=== PATIENT | male | born 1960 | race African-American/Black ===

== ENCOUNTER 2018-08-20 13:44 | Inpatient (IN) | payer OTHER ==
[~2018-08-20] VITALS: Ht 175.3 cm; Wt 101.6 kg
[2018-08-20 14:44] LABS: BASOPHILS % 1.1 % (0.0-2.0); EOSINOPHILS % 2.6 % (0.0-5.0); HEMATOCRIT. 37.5 % (42.0-52.0); HEMOGLOBIN. 12.7 g/dL (14.0-18.0); MEAN CORPUSCULAR HEMOGLOBIN 32.7 pg (28.0-32.0); MEAN CORPUSCULAR VOLUME 96.8 fL (80.0-94.0); MONOCYTES % 12.8 % (2.0-8.0); NEUTROPHILS % 45.5 % (40.0-76.0); PLATELET 179 x1000/uL (130-400); RED BLOOD CELL COUNT 3.88 mill/uL (4.7-6.1); RED CELL DISTRIBUTION WIDTH 15.5 % (11.6-14.6)
[2018-08-20 14:46] LABS: CLARITY URINE CLEAR (CLEAR); COLOR URINE YELLOW (YELLOW); KETONES URINE NEGATIVE (NEGATIVE); LEUKOCYTE ESTERASE URINE NEGATIVE (NEGATIVE); NITRITE URINE NEGATIVE (NEGATIVE); OCCULT BLOOD URINE NEGATIVE (NEGATIVE); PROTEIN URINE NEGATIVE (NEGATIVE); SPECIFIC GRAVITY URINE 1.005 (1.005-1.030); UROBILINOGEN URINE 0.2 E.U./dL (0.2-1.0)
[2018-08-20 14:50] LABS: CHLORIDE 106 mEq/L (98-107)
[2018-08-20 15:07] LABS: PROTHROMBIN TIME 10.3 sec (9.6-11.0)
[2018-08-20] MEDS ORDERED: SODIUM CHLORIDE 0.9% 1,000 ML IV ONE (15:26)
[2018-08-20] MEDS ORDERED: ONDANSETRON HCL 4MG/2ML INJ IV STA (15:26)
[2018-08-20] MEDS ORDERED: FAMOTIDINE 20MG/2ML VIAL IV ONE (15:30)
[2018-08-20] MEDS ORDERED: PANTOPRAZOLE 40MG DR TABLET PO ONE (15:30)
[2018-08-20 17:08] LABS: CHLORIDE 108 mEq/L (98-107)
[2018-08-21] MEDS ORDERED: KDUR10 PO (05:35)
[2018-08-21] MEDS ORDERED: FERR-71 PO (05:35)
[2018-08-21] MEDS ORDERED: FLUT1DIS3 IH (05:35)
[2018-08-21] MEDS ORDERED: CHOL100044 PO (05:35)
[2018-08-21] MEDS ORDERED: PANT40TA4 PO (05:35)
[2018-08-21] MEDS ORDERED: FURO-151 PO (05:35)
[2018-08-21 05:37] VITALS: BP 147/99
[2018-08-21 05:40] VITALS: BP 147/99
[2018-08-21] MEDS ORDERED: ONDANSETRON HCL 4MG/2ML INJ IV PRN (06:15)
[2018-08-21] MEDS ORDERED: IPRATROPIUM/ALBUTEROL 0.5-3(2.5)MG/3ML NEB HHN PRN (06:45)
[2018-08-21 07:47] LABS: EOSINOPHILS % 1.1 % (0.0-5.0); HEMATOCRIT. 36.7 % (42.0-52.0); HEMOGLOBIN. 12.2 g/dL (14.0-18.0); LYMPHOCYTES % 22.4 % (20.0-50.0); MEAN CORPUSCULAR HEMOGLOBIN 32.3 pg (28.0-32.0); MEAN CORPUSCULAR VOLUME 96.8 fL (80.0-94.0); MEAN PLATELET VOLUME 8.3 fl (7.4-10.4); MONOCYTES % 10.3 % (2.0-8.0); NEUTROPHILS % 65.2 % (40.0-76.0); PLATELET 168 x1000/uL (130-400); RED BLOOD CELL COUNT 3.79 mill/uL (4.7-6.1); RED CELL DISTRIBUTION WIDTH 15.4 % (11.6-14.6)
[2018-08-21 07:51] LABS: CHLORIDE 108 mEq/L (98-107)
[2018-08-21 08:00] VITALS: BP 153/105
[2018-08-21] MEDS ORDERED: AMLODIPINE 10MG TABLET PO SCH (09:15)
[2018-08-21] MEDS ORDERED: CLONIDINE 0.1MG TABLET PO PRN (09:15)
[2018-08-21] MEDS: PANTOPRAZOLE 40MG DR TABLET PO SCH ×2 (10:00→21:25)
[2018-08-21] MEDS: FLUTICASONE PROPIONATE 50MCG/SPRAY BOTTLE BOTHNSTRLS SCH (10:01)
[2018-08-21 12:00] VITALS: BP 149/95
[2018-08-21 12:10] LABS: HEMATOCRIT 36.3 % (42.0-52.0); HEMOGLOBIN 12.2 g/dL (14.0-18.0)
[2018-08-21] MEDS ORDERED: LOSARTAN POTASSIUM 25 MG TABLET PO SCH (12:45)
[2018-08-21 13:35] LABS: LDL CHOLESTEROL 87 mg/dL (5-100)
[2018-08-21 15:10] LABS: HDL CHOLESTEROL 142 mg/dL (40-59)
[2018-08-21 15:47] VITALS: BP 155/98
[2018-08-21] MEDS ORDERED: MORPHINE SULFATE 2 MG/ML CPJ (NOT FOR IM USE) IV PRN (16:45)
[2018-08-21] MEDS ORDERED: BISACODYL 5MG TABLET PO PRN (17:30)
[2018-08-21] MEDS: DOCUSATE SODIUM 250MG CAPSULE PO SCH (18:47)
[2018-08-21 19:11] LABS: HEMATOCRIT 36.2 % (42.0-52.0)
[2018-08-21 20:00] VITALS: BP 147/93
[2018-08-21] MEDS: HYDROCORTISONE ACETATE 25MG SUPP PR SCH (21:25)
[2018-08-22] VITALS: BP 138/85
[2018-08-22 04:09] VITALS: BP 145/88
[2018-08-22] MEDS: PANTOPRAZOLE 40MG DR TABLET PO SCH (06:20)
[2018-08-22 06:38] LABS: HEMATOCRIT. 36.3 % (42.0-52.0); HEMOGLOBIN. 12.3 g/dL (14.0-18.0); MEAN CORPUSCULAR HEMOGLOBIN 32.5 pg (28.0-32.0); MEAN CORPUSCULAR VOLUME 96.4 fL (80.0-94.0); MEAN PLATELET VOLUME 8.9 fl (7.4-10.4); PLATELET 166 x1000/uL (130-400); RED BLOOD CELL COUNT 3.77 mill/uL (4.7-6.1); RED CELL DISTRIBUTION WIDTH 15.5 % (11.6-14.6)
[2018-08-22 06:55] LABS: CHLORIDE 105 mEq/L (98-107)
[2018-08-22 08:00] VITALS: BP 153/97
[2018-08-22 08:29] LABS: PLATELET ESTIMATE NORMAL
[2018-08-22] MEDS ORDERED: LOSARTAN POTASSIUM 100 MG TABLET PO SCH (09:00)
[2018-08-22] MEDS: DOCUSATE SODIUM 250MG CAPSULE PO SCH (10:16)
[2018-08-22] MEDS: HYDROCORTISONE ACETATE 25MG SUPP PR SCH (10:16)
[2018-08-22] MEDS: FLUTICASONE PROPIONATE 50MCG/SPRAY BOTTLE BOTHNSTRLS SCH (10:17)
[2018-08-22 12:00] VITALS: BP 149/115
[2018-08-22] MEDS ORDERED: DILTIAZEM HCL 60MG TABLET PO SCH (12:00)
[2018-08-22 14:13] VITALS: BP 149/115
[2018-08-22] MEDS ORDERED: FAMOTIDINE 20MG TABLET PO SCH (21:00)
== END 2018-08-22 14:30 | disposition home or self-care (01) | DRG 253 ==
LOC: ER 13:44 → 6WST 17:18 → EDBEDREQ 17:20 → ENRESERV 08-21 03:49
PROVIDERS: ADMIT Internal Medicine; ATTEND Internal Medicine
DX: K92.2 Gastrointestinal hemorrhage, unspecified (principal); E87.8 Other disorders of electrolyte and fluid balance, not elsewhere classified; D53.9 Nutritional anemia, unspecified; E11.9 Type 2 diabetes mellitus without complications; D50.9 Iron deficiency anemia, unspecified; E66.9 Obesity, unspecified; E78.5 Hyperlipidemia, unspecified; I10 Essential (primary) hypertension; J44.9 Chronic obstructive pulmonary disease, unspecified; K64.9 Unspecified hemorrhoids; M10.9 Gout, unspecified; J98.11 Atelectasis; K59.00 Constipation, unspecified; F17.210 Nicotine dependence, cigarettes, uncomplicated; Z60.2 Problems related to living alone; J45.909 Unspecified asthma, uncomplicated; Z79.899 Other long term (current) drug therapy
CPT/HCPCS: 36415; 71045; 78278; 80048; 80061; 82270; 82962; 84443; 84484; 85014; 85018; 86850; 86900; 93005; 93970; 96361; 96374; 96375; 99285; A9560; J2270; J2405; J3490; J7030

== ENCOUNTER 2020-03-11 15:23 | Emergency (ER) | payer MEDICAID ==
[~2020-03-11] VITALS: Ht 175.3 cm; Wt 91.0 kg
[~2020-03-11 15:23] MED LIST: ALBU18HF2 IH; AMLO5TAB88 PO; ATOR20TA PO; CHOL100044 PO; FERR325T6 PO; FLUT1DIS3 IH; FLUT1DIS3 INH; FURO-151 PO; KDUR10 PO; PANT40TA4 PO
[2020-03-11 15:29] VITALS: BP 157/100
[2020-03-11] MEDS ORDERED: OXYC-662 GT (15:33)
[2020-03-11 18:01] LABS: CHLORIDE 100 mEq/L (98-107)
[2020-03-11 18:16] LABS: EOSINOPHILS % 2.8 % (0.0-5.0); HEMATOCRIT. 38.9 % (42.0-52.0); HEMOGLOBIN. 12.6 g/dL (14.0-18.0); LYMPHOCYTES % 51.2 % (20.0-50.0); MEAN CORPUSCULAR HEMOGLOBIN 26.8 pg (28.0-32.0); MEAN CORPUSCULAR VOLUME 82.8 fL (80.0-94.0); MEAN PLATELET VOLUME 8.2 fl (7.4-10.4); MONOCYTES % 9.3 % (2.0-8.0); NEUTROPHILS % 35.7 % (40.0-76.0); PLATELET 269 x1000/uL (130-400); RED CELL DISTRIBUTION WIDTH 21.2 % (11.6-14.6)
[2020-03-11 18:27] LABS: PROTHROMBIN TIME 10.3 sec (9.6-11.0)
== END 2020-03-11 21:01 | disposition home or self-care (01) ==
LOC: ER 15:23
DX: N17.9 Acute kidney failure, unspecified (principal); D64.9 Anemia, unspecified; I10 Essential (primary) hypertension; J45.909 Unspecified asthma, uncomplicated; F12.10 Cannabis abuse, uncomplicated; Z88.0 Allergy status to penicillin
CPT/HCPCS: 36415; 71045; 80053; 84484; 85025; 86850; 86900; 93005; 99285

== ENCOUNTER 2020-04-28 21:52 | Emergency (ER) | payer MEDICAID ==
[~2020-04-28] VITALS: Ht 182.9 cm; Wt 103.0 kg
[~2020-04-28 21:52] MED LIST changes: +OXYC-662 GT; -PANT40TA4 PO; +PANT40TA51 PO
[2020-04-28] MEDS ORDERED: ACETAMINOPHEN 325MG TABLET PO ONE (23:15)
[2020-04-28] MEDS ORDERED: IBUPROFEN 400MG TABLET PO ONE (23:15)
[2020-04-29 04:59] VITALS: BP 140/96
== END 2020-04-29 05:25 | disposition home or self-care (01) ==
LOC: ER 21:52
DX: F10.229 Alcohol dependence with intoxication, unspecified (principal); M25.561 Pain in right knee; I12.9 Hypertensive chronic kidney disease with stage 1 through stage 4 chronic kidney disease, or unspecified chronic kidney disease; N18.9 Chronic kidney disease, unspecified; E78.00 Pure hypercholesterolemia, unspecified; J45.909 Unspecified asthma, uncomplicated; M10.9 Gout, unspecified; F12.10 Cannabis abuse, uncomplicated; Y90.9 Presence of alcohol in blood, level not specified; Z88.0 Allergy status to penicillin
CPT/HCPCS: 93005; 99283

== ENCOUNTER 2020-04-29 10:22 | Emergency (ER) | payer MEDICAID ==
[~2020-04-29] VITALS: Ht 182.9 cm; Wt 99.0 kg
[2020-04-29] MEDS ORDERED: DEXAMETHASONE 10 MG/ML VIAL IM ONE (11:15)
[2020-04-29] MEDS ORDERED: KETOROLAC 60MG/2ML VIAL IM ONE (11:15)
[2020-04-29 14:07] VITALS: BP 121/73
== END 2020-04-29 14:11 | disposition home or self-care (01) ==
LOC: ER 10:22
DX: M25.561 Pain in right knee (principal); M10.9 Gout, unspecified; M19.90 Unspecified osteoarthritis, unspecified site; J45.909 Unspecified asthma, uncomplicated; F12.10 Cannabis abuse, uncomplicated; I11.9 Hypertensive heart disease without heart failure; E11.9 Type 2 diabetes mellitus without complications; Z98.890 Other specified postprocedural states; Z88.0 Allergy status to penicillin
CPT/HCPCS: 93005; 96372; 99284; J1100; J1885

== ENCOUNTER 2020-06-28 13:49 | Emergency (ER) | payer MEDICAID ==
[~2020-06-28] VITALS: Ht 177.8 cm; Wt 100.0 kg
[2020-06-28 16:01] LABS: EOSINOPHILS % 1.8 % (0.0-5.0); HEMATOCRIT. 39.9 % (42.0-52.0); MEAN CORPUSCULAR HEMOGLOBIN 28.9 pg (28.0-32.0); MEAN CORPUSCULAR VOLUME 88.8 fL (80.0-94.0); MEAN PLATELET VOLUME 8.6 fl (7.4-10.4); MONOCYTES % 7.8 % (2.0-8.0); NEUTROPHILS % 48.4 % (40.0-76.0); PLATELET 426 x1000/uL (130-400); RED CELL DISTRIBUTION WIDTH 19.7 % (11.6-14.6)
[2020-06-28 16:07] LABS: CHLORIDE 102 mEq/L (98-107)
[2020-06-28 16:11] LABS: PROTHROMBIN TIME 10.7 sec (9.6-11.0)
[2020-06-28 16:24] LABS: ETHANOL BLOOD 415 mg/dL
[2020-06-29 00:38] VITALS: BP 138/68
== END 2020-06-29 00:38 | disposition home or self-care (01) ==
LOC: ER 13:49
DX: F10.129 Alcohol abuse with intoxication, unspecified (principal); R10.9 Unspecified abdominal pain; F12.10 Cannabis abuse, uncomplicated; E78.00 Pure hypercholesterolemia, unspecified; I10 Essential (primary) hypertension; Z88.0 Allergy status to penicillin; Z79.899 Other long term (current) drug therapy; Z90.49 Acquired absence of other specified parts of digestive tract; Y90.8 Blood alcohol level of 240 mg/100 ml or more
CPT/HCPCS: 36415; 80053; 80320; 84484; 85025; 93005; 99285; G0480

== ENCOUNTER 2020-09-01 13:55 | Emergency (ER) | payer MEDICAID, OTHER ==
[~2020-09-01] VITALS: Ht 185.4 cm; Wt 99.0 kg
[2020-09-01] MEDS ORDERED: FOLIC ACID 1 MG, THIAMINE HCL 100 MG, MVI, ADULT NO.1 10 ML in DEXTROSE 5% WATER 1,000 ML IV ONE (14:15)
[2020-09-01 14:49] LABS: BASOPHILS % 1.5 % (0.0-2.0); EOSINOPHILS % 5.4 % (0.0-5.0); HEMATOCRIT. 35.6 % (42.0-52.0); HEMOGLOBIN. 11.8 g/dL (14.0-18.0); LYMPHOCYTES % 34.8 % (20.0-50.0); MEAN CORPUSCULAR HEMOGLOBIN 31.8 pg (28.0-32.0); MEAN CORPUSCULAR VOLUME 95.7 fL (80.0-94.0); MEAN PLATELET VOLUME 8.1 fl (7.4-10.4); MONOCYTES % 11.1 % (2.0-8.0); NEUTROPHILS % 47.2 % (40.0-76.0); PLATELET 214 x1000/uL (130-400); RED BLOOD CELL COUNT 3.72 mill/uL (4.7-6.1); RED CELL DISTRIBUTION WIDTH 18.6 % (11.6-14.6)
[2020-09-01 14:54] LABS: CHLORIDE 106 mEq/L (98-107)
[2020-09-01 15:08] LABS: ETHANOL BLOOD 429 mg/dL
[2020-09-01 15:50] LABS: *AMPHETAMINES SCREEN URINE NEGATIVE (NEGATIVE); *BARBITURATES SCREEN URINE NEGATIVE (NEGATIVE); *BENZODIAZEPINES SCREEN URINE NEGATIVE (NEGATIVE); *COCAINE SCREEN URINE NEGATIVE (NEGATIVE)
[2020-09-01 15:51] LABS: CANNABINOID URINE SCREEN NEGATIVE (NEGATIVE); METHADONE URINE SCREEN NEGATIVE (NEGATIVE); OPIATES URINE SCREEN NEGATIVE (NEGATIVE); PHENCYCLIDINE URINE SCREEN NEGATIVE (NEGATIVE)
[2020-09-01 19:30] VITALS: BP 127/63
== END 2020-09-01 19:53 | disposition left against medical advice (07) ==
LOC: ER 14:49
DX: R07.89 Other chest pain (principal); F10.229 Alcohol dependence with intoxication, unspecified; Y90.8 Blood alcohol level of 240 mg/100 ml or more; E78.00 Pure hypercholesterolemia, unspecified; I10 Essential (primary) hypertension; Z90.49 Acquired absence of other specified parts of digestive tract; F17.290 Nicotine dependence, other tobacco product, uncomplicated; Z79.899 Other long term (current) drug therapy; Z88.0 Allergy status to penicillin
CPT/HCPCS: 36415; 71045; 80053; 80305; 80320; 83605; 83690; 83880; 84484; 85025; 93005; 96365; 99285; J3411; J3490; J7070; G0480

== ENCOUNTER 2020-09-30 11:52 | Inpatient (IN) | payer MEDICAID, OTHER ==
[~2020-09-30] VITALS: Ht 185.4 cm; Wt 112.9 kg
[2020-09-30] MEDS ORDERED: ACETAMINOPHEN 325MG TABLET PO STA (12:10)
[2020-09-30 12:32] LABS: BASOPHILS % 1.4 % (0.0-2.0); EOSINOPHILS % 1.7 % (0.0-5.0); HEMOGLOBIN. 10.2 g/dL (14.0-18.0); LYMPHOCYTES % 33.7 % (20.0-50.0); MEAN CORPUSCULAR HEMOGLOBIN 32.4 pg (28.0-32.0); MEAN CORPUSCULAR VOLUME 95.3 fL (80.0-94.0); MEAN PLATELET VOLUME 8.2 fl (7.4-10.4); MONOCYTES % 12.1 % (2.0-8.0); NEUTROPHILS % 51.1 % (40.0-76.0); PLATELET 204 x1000/uL (130-400); RED BLOOD CELL COUNT 3.14 mill/uL (4.7-6.1); RED CELL DISTRIBUTION WIDTH 16.8 % (11.6-14.6)
[2020-09-30 12:38] LABS: CHLORIDE 104 mEq/L (98-107)
[2020-09-30 12:52] LABS: ETHANOL BLOOD 390 mg/dL
[2020-09-30] MEDS ORDERED: IOHEXOL-300 100 ML BOTTLE ONE (14:03)
[2020-09-30 21:55] VITALS: BP 127/63
[2020-09-30] MEDS ORDERED: LORAZEPAM 2MG/ML CPJ IV PRN (22:45)
[2020-09-30] MEDS: HYDROCODONE/ACETAMINOPHEN 5/325MG TABLET PO PRN (23:10)
[2020-09-30] MEDS: ONDANSETRON HCL 4MG/2ML INJ IV PRN (23:11)
[2020-10-01] VITALS: BP 127/63
[2020-10-01 04:00] VITALS: BP 153/103
[2020-10-01] MEDS ORDERED: *PATIENT'S OWN MEDICATION STORAGE XX SCH (04:30)
[2020-10-01] MEDS: HYDROCODONE/ACETAMINOPHEN 5/325MG TABLET PO PRN (05:25)
[2020-10-01] MEDS: ONDANSETRON HCL 4MG/2ML INJ IV PRN ×2 (05:25→11:45)
[2020-10-01] MEDS ORDERED: CLONIDINE 0.1MG TABLET PO PRN (06:45)
[2020-10-01 08:00] VITALS: BP 131/92
[2020-10-01] MEDS: THIAMINE HCL 100MG TABLET PO SCH (09:05)
[2020-10-01] MEDS: FAMOTIDINE 20MG TABLET PO SCH ×2 (09:05→21:07)
[2020-10-01] MEDS: AMLODIPINE 10MG TABLET PO SCH (09:05)
[2020-10-01] MEDS: FOLIC ACID 1MG TABLET PO SCH (09:05)
[2020-10-01] MEDS: CHLORDIAZEPOXIDE 25MG CAPSULE PO SCH ×2 (09:05→16:40)
[2020-10-01] MEDS: METOPROLOL TARTRATE 25MG TABLET PO SCH ×2 (09:06→21:00)
[2020-10-01] MEDS: MULTIVITAMINS,THER W-MINERALS TABLET PO SCH (09:07)
[2020-10-01 12:00] VITALS: BP 113/76
[2020-10-01 16:00] VITALS: BP 119/74
[2020-10-01 20:00] VITALS: BP 98/68
[2020-10-02] VITALS: BP 119/71
[2020-10-02 04:00] VITALS: BP 121/80
[2020-10-02 08:00] VITALS: BP 129/84
[2020-10-02] MEDS: MULTIVITAMINS,THER W-MINERALS TABLET PO SCH (08:57)
[2020-10-02] MEDS: FOLIC ACID 1MG TABLET PO SCH (08:57)
[2020-10-02] MEDS: FAMOTIDINE 20MG TABLET PO SCH (08:57)
[2020-10-02] MEDS: METOPROLOL TARTRATE 25MG TABLET PO SCH (08:57)
[2020-10-02] MEDS: THIAMINE HCL 100MG TABLET PO SCH (08:57)
[2020-10-02] MEDS: CHLORDIAZEPOXIDE 25MG CAPSULE PO SCH (08:57)
[2020-10-02] MEDS: AMLODIPINE 10MG TABLET PO SCH (08:58)
[2020-10-02] MEDS ORDERED: THIA100T88 MT (11:54)
[2020-10-02 12:00] VITALS: BP 125/85
== END 2020-10-02 16:23 | disposition left against medical advice (07) | DRG 770 ==
LOC: ER 11:52 → 6EST 18:14 → ENRESERV 21:12
PROVIDERS: ADMIT Internal Medicine; ATTEND Internal Medicine
DX: F10.129 Alcohol abuse with intoxication, unspecified (principal); M48.02 Spinal stenosis, cervical region; R62.7 Adult failure to thrive; D64.9 Anemia, unspecified; E66.9 Obesity, unspecified; D72.819 Decreased white blood cell count, unspecified; E78.00 Pure hypercholesterolemia, unspecified; E78.5 Hyperlipidemia, unspecified; I10 Essential (primary) hypertension; R74.01 Elevation of levels of liver transaminase levels; Z60.2 Problems related to living alone; W10.8XXA Fall (on) (from) other stairs and steps, initial encounter; Z82.49 Family history of ischemic heart disease and other diseases of the circulatory system; Z68.32 Body mass index [BMI] 32.0-32.9, adult; Z88.0 Allergy status to penicillin; Z79.899 Other long term (current) drug therapy; Z71.3 Dietary counseling and surveillance; Z90.49 Acquired absence of other specified parts of digestive tract; Y93.89 Activity, other specified; Y92.89 Other specified places as the place of occurrence of the external cause; Y99.8 Other external cause status
CPT/HCPCS: 36415; 71045; 74177; 80053; 80320; 85025; 97116; 97162; 99285; J2405; Q9967; G0480

== ENCOUNTER 2022-05-17 10:04 | Emergency (ER) | payer OTHER ==
[~2022-05-17] VITALS: Ht 182.9 cm; Wt 95.0 kg
[~2022-05-17 10:04] MED LIST changes: -KDUR10 PO; +POTA-189 PO; +THIA100T88 MT
[2022-05-17] MEDS ORDERED: SODIUM CHLORIDE 0.9% 1,000 ML IV ONE (10:30)
[2022-05-17 11:14] LABS: HEMATOCRIT. 33.7 % (42.0-52.0); HEMOGLOBIN. 10.7 g/dL (14.0-18.0); MEAN CORPUSCULAR HEMOGLOBIN 26.8 pg (28.0-32.0); MEAN CORPUSCULAR VOLUME 84.5 fL (80.0-94.0); MEAN PLATELET VOLUME 8.6 fl (7.4-10.4); PLATELET 288 x1000/uL (130-400); RED BLOOD CELL COUNT 3.99 mill/uL (4.7-6.1); RED CELL DISTRIBUTION WIDTH 20.2 % (11.6-14.6)
[2022-05-17 11:32] LABS: CHLORIDE 109 mEq/L (98-107)
[2022-05-17 11:54] LABS: ETHANOL BLOOD 422 mg/dL
[2022-05-17 11:58] LABS: CLARITY URINE CLEAR (CLEAR); COLOR URINE YELLOW (YELLOW); KETONES URINE TRACE (NEGATIVE); LEUKOCYTE ESTERASE URINE NEGATIVE (NEGATIVE); NITRITE URINE NEGATIVE (NEGATIVE); OCCULT BLOOD URINE NEGATIVE (NEGATIVE); PROTEIN URINE TRACE (NEGATIVE); SPECIFIC GRAVITY URINE 1.009 (1.005-1.030); UROBILINOGEN URINE 0.2 E.U./dL (0.2-1.0)
[2022-05-17 12:31] LABS: PLATELET ESTIMATE NORMAL
[2022-05-17 13:16] LABS: *AMPHETAMINES SCREEN URINE NEGATIVE (NEGATIVE); *BARBITURATES SCREEN URINE NEGATIVE (NEGATIVE); *BENZODIAZEPINES SCREEN URINE NEGATIVE (NEGATIVE); *COCAINE SCREEN URINE NEGATIVE (NEGATIVE); CANNABINOID URINE SCREEN PRESUMTIVE POSITIVE (NEGATIVE); METHADONE URINE SCREEN NEGATIVE (NEGATIVE); OPIATES URINE SCREEN NEGATIVE (NEGATIVE); PHENCYCLIDINE URINE SCREEN NEGATIVE (NEGATIVE)
[2022-05-17] MEDS ORDERED: DEXTROSE 50% WATER 50ML SYRINGE IV ONE (18:00)
[2022-05-17 18:30] VITALS: BP 128/72
== END 2022-05-17 19:20 | disposition home or self-care (01) ==
LOC: ER 10:04
DX: F10.229 Alcohol dependence with intoxication, unspecified (principal); D64.9 Anemia, unspecified; R07.89 Other chest pain; N28.9 Disorder of kidney and ureter, unspecified; I10 Essential (primary) hypertension; E78.00 Pure hypercholesterolemia, unspecified; Z90.49 Acquired absence of other specified parts of digestive tract; Y90.8 Blood alcohol level of 240 mg/100 ml or more; Z88.0 Allergy status to penicillin
CPT/HCPCS: 36415; 71045; 80053; 80305; 80320; 81003; 82962; 83690; 84484; 85025; 93005; 96374; 99285; J7030; Z7610; G0480